=== PATIENT | male | born 1990 | race African-American/Black ===

== ENCOUNTER 2024-01-07 09:41 | Emergency (ER) | payer OTHER ==
[~2024-01-07] VITALS: Ht 177.8 cm; Wt 70.0 kg
[2024-01-07 09:42] VITALS: O2SAT 98
[2024-01-07 10:58] VITALS: BP 110/67; PULSE 77; RESP 18; TEMP 98
== END 2024-01-07 11:07 | disposition home or self-care (01) ==
LOC: ER 09:41
DX: M79.601 Pain in right arm (principal); J45.909 Unspecified asthma, uncomplicated; Z88.0 Allergy status to penicillin
CPT/HCPCS: 73090; 93005; 99283